=== PATIENT | male | born 1950 | race Caucasian/White ===

== ENCOUNTER 2024-08-12 13:53 | Emergency (ER) | payer OTHER, SELFPAY ==
--- NOTE | 2024-08-12 14:06 | EKG_ITS ---
[facility] Test Date: 2024-08-12 Pat Name: KIARA LAURENT Department: Room: - Gender: Male Lab Technician: : [id number] Requested By: Mando Gilliam Order Number: [id number] Reading MD: Mando Gilliam Measurements Intervals Beeler Rate: 132 P: 68 CT: 138 QRS: 4 QRSD: 74 T: 77 QT: 285 QTc: 423 Interpretive Statements SINUS TACHYCARDIA MODERATE ST DEPRESSION [0.05+ mV ST DEPRESSION] No previous ECG available for comparison /store/S0/[id number]/[id number].pdf
[2024-08-12 14:11] VITALS: BP 128/82; PULSE 132; RESP 20; TEMP 37.3; O2SAT 95; BMI 21.6
[2024-08-12 15:26] LABS: Basophils % (Auto) 0 % (0-2.5); Eosinophils % (Auto) 0 % (0-10); Hematocrit 41.1 % (41.0-53.0); Hemoglobin 13.8 g/dL (13.5-16.0); Immature Granulocytes % (Auto) 0 % (0-0); Immature Granulocytes Auto 0.02 Thou/mm3 (0.00-0.00); Lymphocytes # (Auto) 2.1 Thou/mm3 (1.0-4.8); Lymphocytes % (Auto) 24 % (10-50); Mean Corpuscular HGB Conc 33.6 g/dl (31.0-37.0); Mean Corpuscular Hemoglobin 33.8 pg (25.0-35.0); Mean Corpuscular Volume 101 fL (80-100); Monocytes % (Auto) 11 % (0-12); Neutrophils # (Auto) 5.8 Thou/mm3 (1.8-7.7); Neutrophils % (Auto) 65 % (37-80); Nucleated Red Blood Cell % 0 /100 WBC (0); Platelet Count 104 Thou/mm3 (140-440); RDW Standard Deviation 49.2 fL (35.1-43.9); Red Blood Count 4.08 Miln/mm3 (4.50-5.90); White Blood Count 8.9 Thou/mm3 (3.8-10.6)
[2024-08-12 15:30] LABS: Lactate (Lactic Acid) 2.6 mMol/L (0.4-2.0)
--- NOTE | 2024-08-12 15:50 | EDRME_ITS ---
Rapid Medical Screening Exam [facility] Arrival date/time: 08/12/24 13:53 74-year-old male with a history of bone cancer presents to the emergency room with a chief complaint of a cat bite to his right hand. Patient states he was seen at the [place] doctor and was sent to the emergency room to receive IV medication due to his immunocompromise state. I have greeted and performed a focused initial assessment of this patient. A comprehensive ED assessment and evaluation of the patient, analysis of all test results, and completion of the medical decision making process will be conducted by additional ED providers. Chief Complaint: Animal Bite Time Seen by Provider: 08/12/24 14:09 Vital signs: Vital Signs Temperature 99.1 F 08/12/24 14:11 Pulse Rate 132 H 08/12/24 14:11 Respiratory Rate 20 08/12/24 14:11 Blood Pressure 128/82 08/12/24 14:11 Pulse Oximetry (%) 95 08/12/24 14:11 Oxygen Delivery Method Room Air 08/12/24 14:11 Vital signs reviewed by provider: Yes
[2024-08-12 15:53] LABS: Alanine Aminotransferase 53 U/L (10-49); Albumin, Serum 4.1 gm/dL (3.4-4.8); Albumin/Globulin Ratio 1.5 (1.2-2.2); Alkaline Phosphatase 66 U/L (46-116); Anion Gap 8 (7-16); Aspartate Amino Transferase 46 U/L (0-34); BUN/Creatinine Ratio 16 Ratio (12-20); Bilirubin,Total 0.6 mg/dL (0.3-1.2); Blood Urea Nitrogen 16 mg/dL (9-23); Calcium 9.4 mg/dL (8.3-10.6); Calcium (Corrected) 9.4 mg/dL (8.5-10.1); Carbon Dioxide 26.1 mMol/L (20.0-31.0); Chloride 107 mMol/L (98-107); Estimated Creatinine Clearance 66.1 mL/min (>60); Globulin 2.7 gm/dL (2.3-3.5); Glucose 93 mg/dL (74-106); Osmolality,Calculated 282 (275-295); Potassium 4.5 mMol/L (3.4-5.1); Sodium 141 mMol/L (136-145); Total Protein 6.8 gm/dL (5.7-8.2); eGFR > 60 See Note
[2024-08-12] MEDS: metroNIDAZOLE/NS 500 MG IVPB 500 MG/100 ML BAG 200 MG IV (17:27)
[2024-08-12] MEDS: cefTRIAXone 1,000 MG in SODIUM CHLORIDE 0.9% (Popper) 50 ML 100 MG IV (17:27)
[2024-08-12 18:18] LABS: Reflex Lactate? Y
[2024-08-12 18:55] LABS: Lactic Acid, 3 HR 1.1 mMol/L (0.4-2.0)
--- NOTE | 2024-08-12 19:39 | EDNOTE_ITS ---
ED General RME/HPI General Chief complaint: Animal Bite Stated complaint: BIT BY CAT ON R) ARM YEST.; SENT BY [place] FOR IV ATB Time Seen by Provider: 08/12/24 14:09 Arrival date/time: 08/12/24 13:53 CC: Cat bite to right hand HPI in the web of the thumb cat bit the patient approximately 4 days ago. The patient has multiple light myeloma, it is noticed redness spreading up his arm. Patient denies fever chills shortness of breath or difficulty breathing no OTC medicines taken for pain RME / HPI RME / HPI narrative: 08/12/24 13:53 74-year-old male with a history of bone cancer presents to the emergency room with a chief complaint of a cat bite to his right hand. Patient states he was seen at the [place] doctor and was sent to the emergency room to receive IV medication due to his immunocompromise state. I have greeted and performed a focused initial assessment of this patient. A comprehensive ED assessment and evaluation of the patient, analysis of all test results, and completion of the medical decision making process will be conducted by additional ED providers. Related Data Home Medications ?Medication ?Instructions ?Recorded ?Confirmed morphine 60 mg tablet,extended 60 mg PO Q8H 12/23/21 0 11/08/23 release Previous Rx's ?Medication ?Instructions ?Recorded amoxicillin 875 mg-potassium 1 tab PO BID #14 tabs 09/03 clavulanate 125 mg tablet Allergies Allergy/AdvReac Type Severity Reaction Status Date / Time No Known Allergies Allergy Verified 08/12/24 13:56 Review of Systems Review of Systems Narrative Review of Systems: GEN: No fever, no chills, no weight loss EYES: No discharge, no visual changes, no pain HEENT: No ear pain, no congestion, no sore throat PULM: No shortness of breath, no cough, no congestion CV: No chest pain, no dyspnea on exertion, no palpitations GI: No nausea, no vomiting, no diarrhea, no pain, no constipation : No frequency, no urgency, no dysuria MUSC/SKEL: No joint pain, no back pain SKIN: Puncture wound no rash PSYCH: No hallucinations, no depression HEME/LYMPH: No easy bleeding or bruising tendencies NEURO: No weakness, no headache Past Medical History Past Medical History NEUROLOGIC: Negative Neurological Disorders or Seizures CARDIAC: Positive Cardiac Disorders, Aneurysm (AAA) and Hypotension; Negative Congestive Heart Failure RESPIRATORY: Positive Pneumonia (x2 in past); Negative Chronic Obstructive Pulmonary Disease (COPD) GASTROINTESTINAL: Positive Hepatitis (Hep C); Negative Gastrointestinal Disorders GENITOURINARY: Positive Benign Prostatic Hyperplasia; Negative Genitourinary Disorders or Renal Disease MUSCULOSKELETAL: Positive Musculoskeletal Disorders, Bone Cancer (multiple myeloma) and Fractures (fingers and toes) ENT: Positive Cataracts (BILATERAL) ENDOCRINE: Negative Endocrine Disorders, Diabetes Mellitus Type 1 or Diabetes Mellitus Type 2 HEMATOLOGIC: Positive Blood Disorders and Anemia (BLOOD TRANSFUSIONS) PSYCHO/SOCIAL: Positive Post Traumatic Stress Disorder OTHER HISTORY: Positive Hospitalization, Falls (last fall 2021), Blood Transfusions, Blood Transfusion Reaction (increased heart rate), Chemotherapy (2015), Radiation Therapy (2015), Chicken Pox, Measles, Mumps, Rubella (Hungarian Measles), Pertussis and Cancer; Negative Autoimmune Disease, Anesthesia Reactions, MRSA, VRSA or Vancomycin- Resistant Enterococci Family History FAMILY HISTORY: Positive Family Gastrointestinal Problems (dad-colon cancer), Family Cancer (dad(COLON), MOTHER(BREAST)) and Family Surgery (dad and mom); Negative Family Psychiatric Problems, Family Respiratory Disorders, Family Cardiac Disorders or Family Anesthesia Reaction Surgical History SURGICAL: Positive Cardiac Surgery (TRIPLE A) and Tonsillectomy; Negative Abdominal Surgery Social History SMOKING STATUS: Current every day smoker ED Exam Narrative Physical exam: [General: Thin but not emaciated not in any acute distress Head normocephalic HEENT: Within acceptable limits Neck is supple nontender Chest equal chest rise nontender to palpation Respiratory: Clear to auscultation no wheezes crackles or rubs CV: Rate rhythm is regular no murmurs rubs or clicks Abdomen is distended secondary to body habitus soft nontender no masses positive bowel sounds all 4 quadrants Back: No CVA tenderness no spinous process tenderness from cervical spine thoracic and lumbar spine Skin: Erythema to the dorsum of the right hand with erythema extending up into the mid forearm mildly warm to touch, no open lesions indurations or ulcerations. Otherwise skin is intact no petechiae rash induration ulceration or crepitus Extremities: Moving all extremity against resistance cap refill less than 2 seconds neurosensory intact Neuro: Awake alert oriented x3 Glascow coma 15 no focal deficits] Course Quality Measures none Orders Category Date Time Status EKG (ED ONLY) *Do not use* NOW Care 08/12/24 14:06 Completed EKG (ED Only) Stat Exams 08/12/24 14:06 Ordered Blood Culture (Lab) Stat Lab 08/12/24 15:00 Received CBC Stat Lab 08/12/24 15:00 Completed CMP [Comprehensive Metabolic Panel] Stat Lab 08/12/24 15:00 Completed Lactate (Lactic Acid) Stat Lab 08/12/24 15:00 Completed Lactic Acid, 3 HR Stat Lab 08/12/24 18:29 Completed Procalcitonin Stat Lab 08/12/24 15:00 Completed UA [Urinalysis] Stat Lab 08/12/24 14:19 Ordered Urine Culture Stat Lab 08/12/24 14:19 Ordered cefTRIAXone [Rocephin] 1,000 mg Med 08/12/24 14:15 Discontinued SODIUM CHLORIDE 0.9% (Popper) [Ns 0.9% (P)] 50 ml IV X1 metroNIDAZOLE/NS 500 MG IVPB [Flagyl 500 mg IV] Med 08/12/24 14:16 Discontinued 500 mg in 100 ml IV X1 Vital Signs Vital signs: Vital Signs Temperature 99.1 F 08/12/24 14:11 Pulse Rate 132 H 08/12/24 14:11 Respiratory Rate 20 08/12/24 14:11 Blood Pressure 128/82 08/12/24 14:11 Pulse Oximetry (%) 95 08/12/24 14:11 Oxygen Delivery Method Room Air 08/12/24 14:11 [facility] Patient data External records reviewed:: [facility] previous records Clinical information provided by:: patient Social determinants that could affect healthcare access:: none Patient has the following chronic illnesses:: Multiple myeloma How is presenting disease/condition affected by chronic disease/condition?: u neffected by Evaluation data The following diagnostics were reviewed and interpreted by me:: lab results and radiology exam(s) Lab and/or radiology exams considered but not ordered:: CBC shows no acute leukocytosis anemia thrombocytopenia CMP shows no acute electrolyte imbalances renal impairment transaminitis or T. bili elevation. Procalcitonin at 0.1. Interpretation Summary: Patient given IV antibiotics here patient will be discharged on oral antibiotics to follow-up in 48 hours for recheck of his worsening of symptoms the interim he is to return the emergency room immediately for further evaluation. Medications Medications considered but not ordered:: None Medication administrations:: Medication Administration History Discontinued Medications Ceftriaxone Sodium 1,000 mg/ (Sodium Chloride) 50 mls @ 100 mls/hr IV X1 ONE Stop: 08/12/24 14:44 Last Infusion: 08/12/24 18:10 Dose: Infused Documented By: Admin: 08/12/24 17:27 Dose: 100 mls/hr Documented By: UNIQUE Metronidazole (Flagyl 500 Mg Iv) 500 mg in 100 mls @ 200 mls/hr IV X1 ONE Stop: 08/12/24 14:45 Last Infusion: 08/12/24 18:59 Dose: Infused Documented By: Admin: 08/12/24 17:27 Dose: 200 mls/hr Documented By: UNIQUE None Consultations Consultation(s) initiated? (list below): No Diagnosis Differential Diagnosis ED Complaint MDM: Cellulitis contact dermatitis abscess Most likely diagnosis given after review of the tests above:: Cat bite with cellulitis Admission Indicated Admission indicated?: not indicated Explain why admission is indicated or not indicated:: Stable for outpatient follow-up Admission Request Was there a request for admission?: No Disposition Plan Disposition Plan: Discharge Discharge Attestation Discharge Attestation: The patient and all family members were given an opportunity to ask questions and understood the discharge instructions. Discharge instructions specifically effects, indications for sooner follow up or return to the emergency department, and the expected course of current diagnosis. Patient condition: Stable Medical Decision Making Differential Diagnosis Differential Diagnosis: Cellulitis contact dermatitis abscess Lab Data 08/12/24 15:00 08/12/24 15:00 Labs: Lab Results 08/12/24 08/12/24 Range/Units 15:00 18:29 WBC 8.9 (3.8-10.6) Thou/mm3 RBC 4.08 L (4.50-5.90) Miln/mm3 Hgb 13.8 (13.5-16.0) g/dL Hct 41.1 (41.0-53.0) % MCV 101 H (80-100) fL MCH 33.8 (25.0-35.0) pg MCHC 33.6 (31.0-37.0) g/dl RDW Std Deviation 49.2 H (35.1-43.9) fL Plt Count 104 L (140-440) Thou/mm3 Neut % (Auto) 65 (37-80) % Lymph % (Auto) 24 (10-50) % [place] % (Auto) 11 (0-12) % Eos % (Auto) 0 (0-10) % Baso % (Auto) 0 (0-2.5) % Neut # (Auto) 5.8 (1.8-7.7) Thou/mm3 Lymph # (Auto) 2.1 (1.0-4.8) Thou/mm3 [place] # (Auto) 1.0 H (0.0-0.8) Thou/mm3 Eos # (Auto) 0.0 (0.0-0.5) Thou/mm3 Baso # (Auto) 0.0 (0.0-0.2) Thou/mm3 Immature Gran # (Auto) 0.02 H (0.00-0.00) Thou/mm3 Absolute Nucleated RBC 0.00 (0.00-0.00) Thou/mm3 Immature Gran % 0 (0-0) % Nucleated RBC % 0 (0) /100 WBC Sodium 141 (136-145) mMol/L Potassium 4.5 (3.4-5.1) mMol/L Chloride 107 (98-107) mMol/L Carbon Dioxide 26.1 (20.0-31.0) mMol/L Anion Gap 8 (7-16) BUN 16 (9-23) mg/dL Creatinine 1.0 (0.6-1.3) mg/dL Estim Creat Clear Calc 66.1 (>60) mL/min eGFR > 60 (60 - ) See Note BUN/Creatinine Ratio 16 (12-20) Ratio Glucose 93 (74-106) mg/dL Calculated Osmolality 282 (275-295) Lactic Acid 2.6 H 1.1 (0.4-2.0) mMol/L Calcium 9.4 (8.3-10.6) mg/dL Corrected Calcium 9.4 (8.5-10.1) mg/dL Total Bilirubin 0.6 (0.3-1.2) mg/dL AST 46 H (0-34) U/L ALT 53 H (10-49) U/L Alkaline Phosphatase 66 (46-116) U/L Total Protein 6.8 (5.7-8.2) gm/dL Albumin 4.1 (3.4-4.8) gm/dL Globulin 2.7 (2.3-3.5) gm/dL Albumin/Globulin Ratio 1.5 (1.2-2.2) Procalcitonin 0.10 (0.0-0.49) ng/ml Discharge Plan Plan Patient Disposition: HOME (Self Care) Patient condition on transfer: Stable Prescriptions/Referrals Prescriptions/Med Rec: New amoxicillin-pot clavulanate 875-125 mg tablet 1 tab PO BID Qty: 14 0RF No Action morphine 60 mg Tablet Extended Release 60 mg PO Q8H Referrals: Crow Moore MD [Physician] - In 1 week No Primary/Family,Physician [Primary Care Provider] - In 1 week Problem List Clinical Impression: Cat bite Patient/Caregiver Discharge Instructions Other Activity Instructions:: Take the medication as prescribed return in 2 days for recheck. Education Materials: ED Cat Bite Print Language: Ivorian Stand Alone Forms: Geri Award Info., Patient Portal Info Letter PA/CLINICAL PROGRAM COORDINATOR Supervising Physician PA/CLINICAL PROGRAM COORDINATOR Supervising Physician: Darrion Nuno ENP
[2024-08-12 20:09] VITALS: BP 116/69; PULSE 93; RESP 18; TEMP 36.7; O2SAT 97
== END 2024-08-12 20:12 | disposition home or self-care (01) ==
PROVIDERS: Nurse Practitioner Family; Emergency Provider Emergency Medicine
DX: S61.451A Open bite of right hand, initial encounter (principal); C90.00 Multiple myeloma not having achieved remission; W55.01XA Bitten by cat, initial encounter
CPT/HCPCS: 36415; 80053; 81001; 83605; 84145; 85025; 87040; 87086; 93005; 99284; J0696; J3490; J7050; J1836